=== PATIENT | male | born 1990 | race Caucasian/White ===

== ENCOUNTER 2017-02-04 17:53 | Emergency (ER) | payer OTHER ==
[2017-02-04 18:10] VITALS: O2SAT 96
[2017-02-04] MEDS ORDERED: RABIES VACC, HUMAN DIPLOID/PF 2.5 UNIT VIAL (RABAVERT) IM ONE (19:32)
[2017-02-04] MEDS ORDERED: RABIES IMMUNE GLOBULIN 300 UNIT/2 ML VIAL IM ONE (19:32)
--- NOTE | 2017-02-04 19:41 | EDPHY ---
H & P Smoking Status: Never smoked Time Seen by Provider: 02/04/17 18:49 HPI/ROS: CHIEF COMPLAINT: rabies prophylaxis HISTORY OF PRESENT ILLNESS: 26-year-old male presents to the emergency department rabies prophylaxis. Patient was on the [facility] yesterday sitting in the grass and there were baby raccoon's around, he was taking pictures of these baby raccoon's when the mother ran up and put her mouth on his hand. Pt reports he saw no puncture wounds though he looked down and there was saliva on his hand. He has multiple small abrasions on his hand from other activities. Tetanus is up-to-date, patient has never had a rabies vaccine. He has no other complaints. (Shalonda Carcamo) Physical Exam: GEN: Awake, alert, oriented, no acute distress RESP: nl resp effort MSK: Right hand Full range of motion, sensation intact to light touch, cap refill less than 2 seconds SKIN: Multiple small abrasions to dorsal aspect of hand, no surrounding erythema (Shalonda Carcamo) Constitutional: Initial Vital Signs Temperature (C) 36.9 C 02/04/17 18:07 Heart Rate 85 02/04/17 18:07 Respiratory Rate 18 02/04/17 18:07 Blood Pressure 129/86 H 02/04/17 18:07 O2 Sat (%) 96 02/04/17 18:07 O2 Delivery Mode Room Air Allergies/Adverse Reactions: No Known Allergies Allergy (Unverified 02/04/17 18:07) Home Medications: Medication Instructions Recorded Adderall 10 MG (*) 02/04/17 Vayarin Capsule 02/04/17 MDM/Departure - MDM Medications Given: Discontinued Medications Rabies Immune Globulin (Hyperrab S-D Vial 10ml) 2,080 unit IM .ONCE ONE Stop: 02/04/17 20:01 Last Admin: 02/04/17 20:32 Dose: 2,080 unit Rabies Vaccine Human Diploid Cell (Rabavert) 2.5 unit IM .ONCE ONE Stop: 02/04/17 19:33 Last Admin: 02/04/17 20:30 Dose: 2.5 unit ED Course/Re-evaluation: This patient was evaluated and managed by the nurse practitioner. I have reviewed the chart and agree with the findings and plan of care as documented. ( Cabeen,Lynda A) - Depart Disposition: Home, Routine, Self-Care Clinical Impression: Need for post exposure prophylaxis for rabies Condition: Good Instructions: Rabies Immune Globulin (By injection), Rabies (ED), Rabies Vaccine (ED) Additional Instructions: You need to receive 3 more rabies vaccines. The next one is due on SundayFebruary 07, then SundayFebruary 11 and SundayFebruary 18. Follow up at , or call the [facility] to schedule these. Return to the emergency department if they are unable to these. Referrals: [facility] (ED,. [Edm Groups for Call Sched] - As per Instructions ( Infectious disease clinic)
[2017-02-04] MEDS ORDERED: RABIES IMMUNE GLOBULIN 150 UNIT/ML 10 ML VIAL IM ONE (20:00)
[2017-02-04 21:09] VITALS: BP 160/84; PULSE 80; RESP 15; TEMP 97.9
== END 2017-02-04 21:09 | disposition home or self-care (01) ==
DX: S60.511A Abrasion of right hand, initial encounter (principal); Z23 Encounter for immunization; W55.51XA Bitten by raccoon, initial encounter; Y92.214 College as the place of occurrence of the external cause; Y99.8 Other external cause status; Y93.89 Activity, other specified